=== PATIENT | male | born 1975 | race African-American/Black ===

== ENCOUNTER 2023-08-08 11:05 | Emergency (ER) | payer OTHER ==
[~2023-08-08] VITALS: Ht 188 cm; Wt 127.3 kg
[2023-08-08 11:07] VITALS: TEMP 98
[2023-08-08 11:28] LABS: BASOPHILS % (AUTO) 0.3 % (0.0-2.0); EOSINOPHILS % (AUTO) 0.2 % (1.0-6.0); HEMOGLOBIN 14.3 g/dL (13.5-17.5); LYMPHOCYTES % (AUTO) 15.8 % (22.0-44.0); MEAN CORPUSCULAR HEMOGLOBIN 28.2 pg (26.0-34.0); MEAN CORPUSCULAR HGB CONC 33.4 G/dL (31.0-37.0); MEAN CORPUSCULAR VOLUME 85 fL (80-100); MONOCYTES # (AUTO) 0.3 K/uL (0.1-1.0); MONOCYTES % (AUTO) 4.7 % (2.0-9.0); NEUTROPHILS # (AUTO) 4.9 K/uL (1.8-7.7); PLATELET COUNT (AUTO) 203 K/uL (150-450); RED BLOOD CELL COUNT(AUTO) 5.08 MIL/uL (4.50-5.90); RED CELL DISTRIBUTION WIDTH 13.4 % (11.5-14.5); WHITE BLOOD COUNT (AUTO) 6.2 K/uL (4.5-11.0)
[2023-08-08 11:40] LABS: ANION GAP 9 mmol/L (8-16); CALCIUM, TOTAL 9.6 mg/dL (8.8-10.5); CARBON DIOXIDE 29 mmol/L (22-29); CHLORIDE 103 mmol/L (98-107); CREATININE 1.32 mg/dL (0.60-1.30); GLOMERULAR FILTR. RATE CALC > 60 mL/min (>60); GLUCOSE,RANDOM 135 mg/dL (70-110); SODIUM SERUM 141 mmol/L (136-145); UREA NITROGEN, BLOOD 12 mg/dL (7-18)
[2023-08-08 11:43] LABS: ALANINE AMINOTRANSFERASE 38 U/L (12-78); ALBUMIN 4.2 g/dL (3.4-5.0); ALKALINE PHOSPHATASE 28 U/L (46-116); ASPARTATE AMINOTRANSFERASE 41 U/L (15-37); BILIRUBIN,TOTAL 0.4 mg/dL (0.1-1.0); LIPASE 92 U/L (16-77); TOTAL PROTEIN, SERUM 7.8 g/dL (6.4-8.2)
[2023-08-08 12:22] LABS: INFLUENZA A-RTPCR,COMBO NEGATIVE (NEGATIVE); INFLUENZA B-RTPCR,COMBO NEGATIVE (NEGATIVE); RESPIRATORY SYNCYTIAL VRS-PCR NEGATIVE (NEGATIVE); SARS COVID19 RTPCR, COMBO NEGATIVE (NEGATIVE)
[2023-08-08] MEDS ORDERED: SODIUM CHLORIDE 0.9% 1,000 ML IV ONE (14:45)
[2023-08-08] MEDS ORDERED: ONDANSETRON HCL 4 MG/2 ML VIAL IVP ONE (14:45)
[2023-08-08 15:11] LABS: APPEARANCE,URINE CLEAR (CLEAR); BILIRUBIN,URINE NEGATIVE (NEGATIVE); COLOR,URINE LIGHT YELLOW (YELLOW); GLUCOSE, URINE (UA) NEGATIVE (NEGATIVE); KETONES,URINE TRACE mg/dL (NEGATIVE); LEUKOCYTE ESTERASE ,URINE NEGATIVE (NEGATIVE); NITRATE,URINE NEGATIVE (NEGATIVE); OCCULT BLOOD,URINE NEGATIVE (NEGATIVE); PH,URINE 7.5 (5.0-8.0); PROTEIN,URINE TRACE mg/dL (NEGATIVE); SPECIFIC GRAVITIY, URINE 1.028 (1.003-1.030); UROBILINOGEN,URINE <=1.0 mg/dL (<=1.0)
[2023-08-08] MEDS ORDERED: KETOROLAC TROMETHAMINE 30 MG/ML VIAL IVP ONE (15:45)
[2023-08-08] MEDS ORDERED: FAMOTIDINE 20 MG/2 ML VIAL IVP ONE (15:45)
[2023-08-08] MEDS ORDERED: ONDA-104 PO (17:02)
[2023-08-08 17:15] VITALS: BP 130/84; PULSE 76; RESP 16
== END 2023-08-08 18:30 | disposition home or self-care (01) ==
LOC: EMS 11:09
DX: E86.0 Dehydration (principal); R11.2 Nausea with vomiting, unspecified; Z20.822 Contact with and (suspected) exposure to COVID-19
CPT/HCPCS: 99285; 96374; 0241U; 76700; 96375; 96361; 80053; 81003; 83690; 85025; 36415; J3490; J1885; J2405; J7030

== ENCOUNTER 2024-07-06 21:12 | Emergency (ER) | payer OTHER ==
[~2024-07-06] VITALS: Ht 188 cm; Wt 172.0 kg
[~2024-07-06 21:12] MED LIST: ONDA-104 PO
[2024-07-06 21:17] VITALS: BP 135/77; PULSE 84; RESP 18; TEMP 98.6; O2SAT 99
[2024-07-06] MEDS ORDERED: BACI28.410 TP (22:15)
[2024-07-06] MEDS ORDERED: IBUP-1554 PO (22:15)
[2024-07-06] MEDS ORDERED: ACET-66 PO (22:15)
[2024-07-06] MEDS: IBUPROFEN 600 MG TABLET PO ONE (22:20)
[2024-07-06] MEDS: ACETAMINOPHEN 500 MG TABLET PO ONE (22:21)
[2024-07-06] MEDS: BACITRACIN 0.9 GM PACKET OINTMENT TP ONE (22:21)
[2024-07-06] MEDS: LIDOCAINE 1% 10 ML VIAL SQ ONE (22:22)
[2024-07-06] MEDS ORDERED: CEPH-558 PO (23:03)
== END 2024-07-07 01:43 | disposition home or self-care (01) ==
LOC: EMS 21:12
DX: S61.411A Laceration without foreign body of right hand, initial encounter (principal); W26.0XXA Contact with knife, initial encounter; Y93.89 Activity, other specified; Y92.89 Other specified places as the place of occurrence of the external cause; Y99.8 Other external cause status
CPT/HCPCS: 99283; 12001; J3490; 12002